=== PATIENT | male | born 1950 | race Caucasian/White ===

== ENCOUNTER 2016-10-06 09:50 | Outpatient (CLI) ==
[2015-01-03 21:54] VITALS: BMI 28.6
[2016-10-06 10:37] LABS: BASOPHILS % (AUTO) 0.6 % (0.0-3.0); EOSINOPHILS # (AUTO) 0.1 K/ul (0.0-0.7); EOSINOPHILS % (AUTO) 1.7 % (0.0-7.0); HEMOGLOBIN 15.6 g/dl (14.0-18.0); IMMATURE GRANULOCYTE % (AUTO) 0.3 % (0.0-5.0); LYMPHOCYTES # (AUTO) 1.6 K/uL (0.60-3.4); LYMPHOCYTES % (AUTO) 24.7 (10.0-50.0); MEAN CORPUSCULAR HGB CONC 33.9 (31.8-35.4); MEAN CORPUSCULAR VOLUME 94.3 fl (80.0-94.0); MONOCYTES # (AUTO) 0.8 K/uL (0.4-2.0); MONOCYTES % (AUTO) 11.6 (0-10); NEUTROPHILS % (AUTO) 61.1; PLATELET COUNT 221 10^3/uL (140-440); RED BLOOD COUNT 4.88 10^6/ul (4.70-6.10); WHITE BLOOD COUNT 6.55 K/ul (4.2-10.2)
[2016-10-06 10:47] LABS: ALBUMIN 3.8 g/dL (3.4-5.0); ALBUMIN/GLOBULIN RATIO 1.15; ANION GAP 11.4; BILIRUBIN,TOTAL 0.68 mg/dL (0.00-1.20); BUN/CREATININE RATIO 21.42; CHOL/HDL RATIO 6.3 (4.5-6.4); CREATININE 0.98 mg/dL (0.60-1.10); POTASSIUM 4.4 mmol/L (3.5-5.1); TOTAL PROTEIN 7.1 g/dL (5.8-8.1)
[2016-10-06 10:49] LABS: BILIRUBIN,URINE Negative (NEGATIVE); KETONES,URINE Negative (NEGATIVE); LEUKOCYTE ESTERASE ,URINE Negative (NEGATIVE); NITRITE,URINE Negative (NEGATIVE); PH,URINE 6.5 (5-9); PROTEIN,URINE Negative (NEGATIVE); URINE, BLOOD Negative (NEGATIVE)
[2016-10-06 10:50] LABS: ADD URINE MICROSCOPIC NO
--- NOTE | 2016-10-06 10:55 | DI ---
Examination: Two radiographic images of the chest. Comparison: CT imaging performed on 01/03/2015. Reason for study: Chronic obstructive pulmonary disease with history of angina. FINDINGS: No pneumothorax, pleural effusion, or focal consolidation. The cardiac silhouette is not enlarged. Mild degenerative disease is noted in the thoracic spine. 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 Impression: No acute cardiopulmonary findings.
[2016-10-07 15:31] LABS: COCAIN SCREEN,URINE NEGATIVE (NEGATIVE)
== END 2016-10-06 09:51 | disposition home or self-care (01) ==
LOC: RAD 09:50
PROVIDERS: ATTEND Family Medicine
DX: Z00.00 Encounter for general adult medical examination without abnormal findings (principal); E78.5 Hyperlipidemia, unspecified; J44.9 Chronic obstructive pulmonary disease, unspecified; I20.9 Angina pectoris, unspecified
CPT/HCPCS: 36415; 80053; 80061; 80306; 81001; 84439; 84443; 85025; 93005; 93010